=== PATIENT | male | born 1945 | race Caucasian/White ===

== ENCOUNTER 2022-06-17 15:09 | Emergency (ER) | payer MEDICARE, OTHER, SELFPAY ==
[2022-06-17] VITALS (9 sets, daily range): BP systolic 100–156; BP diastolic 68–98; PULSE 62–82; RESP 16–19; TEMP 36.3–36.5; O2SAT 98–100
--- NOTE | ~2022-06-17 | XR_ITS ---
EXAMINATION: XR chest 2V DATE: 06/17/2022 16:50 INDICATION: Chest pressure. Dizziness. Hypotension. TECHNIQUE: PA and lateral views of the chest were obtained. COMPARISON: None FINDINGS: Mild elevation of the left hemidiaphragm. No focal airspace opacities, pulmonary edema, pleural effus ion or pneumothorax. The cardiomediastinal silhouette is normal. Dual lead pacemaker seen with leads projecting over the expected locations of the right atrium and right ventricle. Mild thoracic kyphosi s with chronic appearing mild anterior wedging of a few mid thoracic vertebral bodies. IMPRESSION: 1. Mild elevation the left hemidiaphragm. No other acute cardiopulmonary disease. Reviewed, dictated and finalized at location A. IMPRESSION: 1. Mild elevation the left hemidiaphragm. No other acute cardiopulmonary diseas e.
--- NOTE | 2022-06-17 15:21 | ECG_ITS ---
Measurements Intervals [place] Rate: 69 P: PA: 0 QRS: -66 QRSD: 179 T: 84 QT: 443 QTc: 478 Interpretive Statements ELECTRONIC VENTRICULAR PACEMAKER OCCASIONAL PREMATURE VENTRICULAR CONTRACTIONS NO FURTHER INTERPRETATION POSSIBLE NO PREVIOUS ECG AVAILABLE FOR COMPARISON Electronically Signed On 06-17-2022 16:11:11 CDT by Kelvin Friedamn M.D.
[2022-06-17 15:50] LABS: Basophils Absolute Auto 0.1 K/mm3 (0.0-0.1); Eosinophils Absolute Auto 0.3 K/mm3 (0-0.3); Eosinophils Percent Auto 6.5 % (0-4.4); Hematocrit 39.1 % (42.0-52.0); Hemoglobin 12.8 g/dL (14.0-18.0); Immature Granulocyte Absolute 0.01 K/mm3 (0.00-0.031); Immature Granulocyte Percent A 0.2 % (0-0.5); Lymphocytes Absolute Auto 1.26 K/mm3 (0.9-3.2); Lymphocytes Percent Auto 25.8 % (18.3-44.2); Mean Corpuscular HGB Conc 32.7 g/dl (32-36); Mean Corpuscular Hemoglobin 32.6 pg (26-34); Mean Corpuscular Volume 99.5 fl (80-100); Mean Platelet Volume 9.7 fl (7.4-10.4); Monocytes Absolute Auto 0.5 K/mm3 (0.1-0.6); Neutrophils Absolute Auto 2.7 K/mm3 (1.3-6.7); Neutrophils Percent Auto 55.5 % (45.5-73.1); Platelet Count Result 156 k/mm3 (150-375); Red Blood Count 3.93 M/mm3 (4.6-6.20); Red Cell Distribution Width 12.9 % (11.5-14.5); White Blood Count 4.9 K/mm3 (4.5-10.0)
[2022-06-17 16:01] LABS: Prothrombin Time 13.2 Seconds (11.1-14.7)
[2022-06-17 16:02] LABS: Partial Thromboplastin Time 24.8 SECONDS (22.3-36.8)
[2022-06-17 16:10] LABS: Alanine Aminotransferase 24 U/L (6-50); Albumin Level 4.2 g/dL (3.5-5.1); Alkaline Phosphatase 59 U/L (38-126); Anion Gap 9 mmol/L (8-16); Aspartate Amino Transferase 42 U/L (17-59); Bilirubin,Total 0.7 mg/dL (0.2-1.3); Blood Urea Nitrogen 27 mg/dL (9-20); Calcium 9.3 mg/dL (8.4-10.2); Carbon Dioxide 24 mmol/L (22-30); Chloride 103 mmol/L (98-107); Estimated CRCL calculation 52 ml/min; Estimated Glomerular Filt Rate 59; Glucose 110 mg/dL (65-110); Lipase 112 U/L (23-300); Potassium 4.4 mmol/L (3.4-5.0); Sodium 136 mmol/L (137-145)
[2022-06-17 16:22] LABS: Troponin I < 0.012 ng/mL (0.000-0.034)
[2022-06-17 19:26] LABS: Troponin I < 0.012 ng/mL (0.000-0.034)
[2022-06-17] MEDS: SODIUM CHLORIDE 0.9% IV 1,000 ML 999 ML IV CONT (21:11)
[2022-06-17 21:47] LABS: Troponin I < 0.012 ng/mL (0.000-0.034)
--- NOTE | 2022-06-17 22:11 | ED.DIZZY ---
HPI - Dizziness General Chief Complaint: Dizziness Stated Complaint: dizzy low bp Time Seen by Provider: 06/17/22 20:03 History of Present Illness HPI Narrative: Patient is a 76-year-old male who presents ER with lightheadedness. Reports he has been getting dizzy when he goes from sitting to standing. Markedly worse today but this happens on occasion. Reports poor oral intake of fluids over the last 2 days. Reports he took his blood pressure and was in the 90s systolic. He then got some tightness in his chest that he attributes to anxiety. No additional chest pain or chest pressure none with exertion. No fevers or chills or sweats. No known sick contacts. No loss of consciousness. Related Data Allergies Allergy/AdvReac Type Severity Reaction Status Date / Time No Known Allergies Allergy Verified 06/17/22 20:18 Review of Systems Review of Systems: All systems reviewed & are unremarkable except as noted in HPI and below Constitutional: Constitutional: Denies chills, Denies fatigue and Denies fever(s) Cardiovascular: Cardiovascular: Reports chest pain, Denies rapid heart rate and Denies radiating jaw, neck or arm pain Respiratory: Respiratory: Denies cough and Denies dyspnea Gastrointestinal: Gastrointestinal: Denies abdominal pain, Denies nausea and Denies vomiting Neurologic: Reports dizziness, Denies syncope, Denies headache(s) and Denies focal weakness PMFSH Past Medical History Medical History (Updated 06/17/22 @ 22:17 by Robbie Reyna MD) Coronary artery disease Hyperlipidemia Hypertension Pacemaker Surgical History Surgical History (Updated 06/17/22 @ 22:17 by Robbie Reyna MD) History of percutaneous coronary intervention Social History Social History Smoking status: Never smoker Alcohol intake: current Exam Narrative: GENERAL: Well-appearing, well-nourished, and in no acute distress. HEAD: Normocephalic, atraumatic. ENT: Mucous membranes moist. NECK: Supple. CHEST: Clear to auscultation. No respiratory distress. HEART: Irregular paced rhythm. Normal peripheral pulses. ABDOMEN: Soft, nontender, nondistended. EXTREMITIES: Normal range of motion. No edema. SKIN: Warm, dry, no rash. NEURO: Alert and oriented x3. PSYCH: Normal mood and affect. Course Course Emergency Course: Patient orthostatic with improvement after 1 L normal saline. Discharge home. Vital Signs Vital signs: Vital Signs Temperature 97.3 F L 06/17/22 15:18 Pulse Rate 62 06/17/22 15:18 Respiratory Rate 19 06/17/22 15:18 Blood Pressure 112/68 06/17/22 15:18 Pulse Oximetry 100 06/17/22 15:18 Oxygen Delivery Room Air 06/17/22 15:18 Temperature 97.7 F 06/17/22 17:09 Pulse Rate 67 06/17/22 21:41 Respiratory Rate 19 06/17/22 15:18 Blood Pressure 116/86 06/17/22 21:41 Pulse Oximetry 100 06/17/22 17:09 Oxygen Delivery Room Air 06/17/22 15:18 MDM - Dizziness Lab Data Result diagrams: 06/17/22 15:34 06/17/22 15:34 Labs: Lab Results 06/17/22 06/17/22 06/17/22 Range/Units 15:34 15:34 15:34 WBC 4.9 (4.5-10.0) K/mm3 RBC 3.93 L (4.6-6.20) M/mm3 Hgb 12.8 L (14.0-18.0) g/dL Hct 39.1 L (42.0-52.0) % MCV 99.5 (80-100) fl MCH 32.6 (26-34) pg MCHC 32.7 (32-36) g/dl RDW 12.9 (11.5-14.5) % Plt Count 156 (150-375) k/mm3 MPV 9.7 (7.4-10.4) fl Immature Gran % (Auto) 0.2 (0-0.5) % Neut % (Auto) 55.5 (45.5-73.1) % Lymph % (Auto) 25.8 (18.3-44.2) % Dawes % (Auto) 11.0 H (2.6-8.5) % Eos % (Auto) 6.5 H (0-4.4) % Baso % (Auto) 1.0 (0.2-1.2) % Lymph # (Auto) 1.26 (0.9-3.2) K/mm3 Dawes # (Auto) 0.5 (0.1-0.6) K/mm3 Eos # (Auto) 0.3 (0-0.3) K/mm3 Baso # (Auto) 0.1 (0.0-0.1) K/mm3 Abs Immat Gran (auto) 0.01 (0.00-0.031) K/mm3 Absolute Neuts (auto) 2.7 (1.3-6.7) K/mm3 Absolute Nucleated RBC 0.0 (0.0-0.012) K/mm3 Nucleated RBC
== END 2022-06-17 22:50 | disposition home or self-care (01) ==
PROVIDERS: Emergency Medicine; Emergency Provider Emergency Medicine; PCP Physician Assistant
DX: I95.1 Orthostatic hypotension (principal); E86.0 Dehydration; I10 Essential (primary) hypertension; I25.10 Atherosclerotic heart disease of native coronary artery without angina pectoris; Z95.0 Presence of cardiac pacemaker; R07.89 Other chest pain
CPT/HCPCS: 36415; 71046; 80053; 83690; 84484; 85025; 85610; 85730; 93005; 96360; 99284; J7030